=== PATIENT | female | born 1990 | race Caucasian/White ===

== ENCOUNTER 2019-07-03 12:34 | Emergency (ER) | payer SELFPAY ==
[~2019-07-03] VITALS: Ht 160 cm; Wt 66.7 kg
[2019-07-03 13:04] VITALS: Ht 160 cm; Wt 66.7 kg
[2019-07-03 14:34] LABS: BASOPHIL % 0.2 % (0-2); RED CELL DISTRIBUTION WIDTH 15.6 % (11.5-14.5)
[2019-07-03 14:35] LABS: PLATELET COUNT 717 x10^3mcL (130-400)
[2019-07-03 14:55] LABS: ALKALINE PHOSPHATASE 119 U/L (46-116); ALT/SGPT 15 U/L (14-59); AST/SGOT 11 U/L (15-37); BILIRUBIN TOTAL 0.2 mg/dL (0.20-1.00); CHLORIDE SERUM 97 mmol/L (98-107); CREATININE SERUM 0.8 mg/dL (0.6-1.0); GFR1 > 60 mL/min; GLUCOSE SERUM 86 mg/dL (74-106); SODIUM SERUM 136 mmol/L (136-145)
[2019-07-03 14:58] LABS: ALBUMIN 2.8 g/dL (3.4-5.0); POTASSIUM SERUM 2.6 mmol/L (3.5-5.1)
[2019-07-03 15:00] LABS: FREE T4 1.19 ng/dL (0.76-1.46); FREE THYROXINE INDEX 2.2 ug/dL (1.4-4.5); T4(THYROXINE) 7.2 ug/dL (4.7-13.3)
[2019-07-03 15:01] LABS: T3 TOTAL 0.91 ng/mL
[2019-07-03 15:33] LABS: microscopic required? YES; urine erythrocyte 3+ (NEGATIVE)
[2019-07-03 15:50] VITALS: BP 112/69
== END 2019-07-03 15:50 | disposition home or self-care (01) ==
LOC: ED 12:34
PROVIDERS: Emergency Medicine
DX: N39.0 Urinary tract infection, site not specified (principal); D64.9 Anemia, unspecified; R19.7 Diarrhea, unspecified; Z87.19 Personal history of other diseases of the digestive system
CPT/HCPCS: 36415; 84439; J7512

== ENCOUNTER 2019-10-30 21:01 | Emergency (ER) | payer MEDICAID ==
[~2019-10-30] VITALS: Ht 160 cm; Wt 62.4 kg
[2019-10-30 21:08] VITALS: Ht 160 cm; Wt 62.4 kg
[2019-10-30 22:10] LABS: BASOPHIL % 0.4 % (0-2)
[2019-10-30 22:12] LABS: RED CELL DISTRIBUTION WIDTH 17.2 % (11.5-14.5)
[2019-10-30 22:13] LABS: PLATELET COUNT 698 x10^3mcL (130-400)
[2019-10-30 22:20] LABS: ALBUMIN 3.4 g/dL (3.4-5.0); ALKALINE PHOSPHATASE 92 U/L (46-116); ALT/SGPT 11 U/L (14-59); AST/SGOT 16 U/L (15-37); BILIRUBIN TOTAL 0.3 mg/dL (0.20-1.00); CALCIUM 8.8 mg/dL (8.5-10.1); CARBON DIOXIDE 22.9 mmol/L (21-32); CHLORIDE SERUM 96 mmol/L (98-107); CHOLESTEROL 153 mg/dL (<200); GFR1 > 60 mL/min; GLUCOSE SERUM 99 mg/dL (74-106); HDL CHOLESTEROL 38 mg/dL (40-60); LIPASE 70 IU/L (73-393); SODIUM SERUM 131 mmol/L (136-145); TRIGLYCERIDES 159 mg/dL (<150)
[2019-10-30 22:20] LABS: UA SPECIFIC GRAVITY 1.025 (1.005-1.035); microscopic required? YES; urine erythrocyte TRACE (NEGATIVE)
[2019-10-30 22:23] LABS: TOTAL PROTEIN, SERUM 8.5 g/dL (6.4-8.2)
[2019-10-30 22:26] LABS: FREE T4 1.18 ng/dL (0.76-1.46); FREE THYROXINE INDEX 2.7 ug/dL (1.4-4.5); T4(THYROXINE) 8.7 ug/dL (4.7-13.3)
[2019-10-30 22:30] LABS: AMPHETAMINE QUAL UR NONE DETECTED (See below)
[2019-10-31 00:19] VITALS: BP 104/28
== END 2019-10-31 00:15 | disposition home or self-care (01) ==
LOC: ED 21:01
PROVIDERS: Specialist
DX: K51.90 Ulcerative colitis, unspecified, without complications (principal); N39.0 Urinary tract infection, site not specified; E87.6 Hypokalemia; D64.9 Anemia, unspecified
CPT/HCPCS: 83880; 84439; G0480; Q0092

== ENCOUNTER 2019-11-13 14:29 | Emergency (ER) | payer MEDICAID ==
[~2019-11-13] VITALS: Ht 160 cm; Wt 67.1 kg
[2019-11-13 15:02] VITALS: Ht 160 cm; Wt 67.1 kg
[2019-11-13 18:19] LABS: CALCIUM 8.2 mg/dL (8.5-10.1); CARBON DIOXIDE 24.3 mmol/L (21-32); CHLORIDE SERUM 103 mmol/L (98-107); CREATININE SERUM 0.5 mg/dL (0.6-1.0); GFR1 > 60 mL/min; GLUCOSE SERUM 79 mg/dL (74-106); POTASSIUM SERUM 3.8 mmol/L (3.5-5.1); SODIUM SERUM 134 mmol/L (136-145)
[2019-11-13 18:24] LABS: ALKALINE PHOSPHATASE 69 U/L (46-116); ALT/SGPT 16 U/L (14-59); AST/SGOT 14 U/L (15-37); BILIRUBIN TOTAL 0.2 mg/dL (0.20-1.00); TOTAL PROTEIN, SERUM 7.7 g/dL (6.4-8.2)
[2019-11-13 18:27] LABS: ALBUMIN 3.3 g/dL (3.4-5.0)
[2019-11-13 18:31] LABS: BAND NEUTROPHIL 2 % (0-10); MONOCYTE 11 % (0-7); PLATELET MORPHOLOGY PLATELETS INCREASED; SEGMENTED NEUTROPHILS 60 % (37-75); rbc morphology (normal/abnorm) ABNORMAL (NORMAL)
[2019-11-13 18:46] LABS: PLATELET COUNT 575 x10^3mcL (130-400)
[2019-11-14 02:59] VITALS: BP 104/58
== END 2019-11-14 03:00 | disposition home or self-care (01) ==
LOC: ED 14:29
PROVIDERS: Emergency Medicine
DX: S63.256A Unspecified dislocation of right little finger, initial encounter (principal); W23.0XXA Caught, crushed, jammed, or pinched between moving objects, initial encounter; Y93.89 Activity, other specified; Y92.89 Other specified places as the place of occurrence of the external cause; Y99.8 Other external cause status
CPT/HCPCS: J7040; P9016